=== PATIENT | female | born 1955 | race Two or more races ===

== ENCOUNTER 2021-08-26 06:29 | Day surgery (SDC) | payer OTHER ==
[~2021-08-26 06:29] MED LIST: ADULT LOW DOSE81 M1 PO; CLONAZEPAM1 MG PO; LIPITOR20 MG PO; RAMIPRIL5 MG PO
[2021-08-26] MEDS ORDERED: IBU600 MG PO (09:35)
== END 2021-08-26 13:00 | disposition home or self-care (01) ==
LOC: CIR.AMB 06:29
PROVIDERS: ATTEND Obstetrics & Gynecology Gynecology
DX: N84.1 Polyp of cervix uteri (principal)